=== PATIENT | male | born 1995 | race Caucasian/White ===

== ENCOUNTER → 2021-03-23 12:40 | Outpatient (CLI) | payer OTHER, SELFPAY ==
--- NOTE | 2021-03-23 12:46 | ECHOD_ITS ---
Reason For Study: T WA VE ABNORMALITY/ ABN EKG Procedure This was a 2D Doppler, Color Flow transthoracic echocardiogram. The exam was of adequate technical quality. Exam performed in department. Left Ventricle Normal LV size. Left ventricular systolic function is normal. The estimated ejection fraction is 65 %. No evidence for diastolic dysfunction. No regional wall motion abnormalities noted. Right Ventricle Normal RV size. Normal systolic function. Atria Normal left atrium. Normal right atrium. No doppler evidence for ASD. Mitral Valve There is no mitral annular calcification. Normal mitral valve. Trivial mitral valve insufficiency. Tricuspid Valve Normal tricuspid valve. Mild tricuspid valve insufficiency. Right ventricular systolic pressure estimated to be 20 mmHg. Aortic Valve Trisinus/trileaflet aortic valve. Normal aortic valve. Pulmonic Valve The pulmonic valve is not well visualized. Trivial pulmonic valve insufficiency. Great Vessels Normal sized aortic root. Pericardium/Pleural No pericardial effusion. MMode/2D Measurements & Calculations LVIDd: 5.1 cm IVSd: 1.0 cm Ao root diam: 3.0 cm LVIDs: 3.3 cm LVPWd: 1.0 cm RVDd: 3.4 cm FS: 36.1 % LAV(MOD-bp): 62.1 ml LA A4 area: 19.8 cm2 RA A4 area: 13.5 cm2 LAV(MOD-bp) Indexed: 29.2 ml/m2 LAV(MOD-sp2): 68.4 ml LAV(MOD-sp4): 57.0 ml Time Measurements MV dec time: 0.28 sec Doppler Measurements & Calculations MV E max bret: 54.0 cm/sec Lat Peak E' Bret: 17.2 cm/sec Med Peak E' Bret: 13.4 cm/sec MV A max bret: 45.3 cm/sec E/E' lat: 3.1 E/E' med: 4.0 MV E/A: 1.2 Ao V2 max: 97.5 cm/sec LV V1 max: 95.7 cm/sec PA V2 max: 94.0 cm/sec Ao max P.8 mmHg LV V1 max P.7 mmHg PI end-d bret: 108.9 cm/sec TR max bret: 202.4 cm/sec TR max P.7 mmHg ECHO/Echo Complete Interpretation Summary Left ventricular systolic function is normal. The estimated ejection fraction is 65 %. Trivial mitral valve insufficiency. Mild tricuspid valve insufficiency. Trivial pulmonic valve insufficiency. Right ventricular systolic pressure estimated to be 20 mmHg. No evidence for diastolic dysfunction. Ordering Physician: Ruben Workman Referring Physician: Ruben Workman Performed By: Mally Alvarez, TORRI, RVT
== END ==
PROVIDERS: PCP Family Medicine; Referring Provider Family Medicine; Visit Provider Family Medicine
DX: R94.31 Abnormal electrocardiogram [ECG] [EKG] (principal)
CPT/HCPCS: 93306